=== PATIENT | male | born 1950 | race Caucasian/White ===

== ENCOUNTER 2019-01-09 06:20 | Observation (INO) | payer MEDICARE ==
--- NOTE | 2019-01-08 11:19 | Diagnostic Imaging Report ---
EXAMINATION: CHEST 2 VIEWS INDICATION: Pre-operative COMPARISON: None FINDINGS: LINES/TUBES:None LUNGS:The lungs are well-inflated. No focal consolidation or pulmonary edema. PLEURA:No pleural effusion or pneumothorax. MEDIASTINUM:The cardiomediastinal silhouette appears normal in size and shape. Atherosclerotic calcifications of the thoracic aorta. BONES/SOFT TISSUES:No acute osseous injury. ABDOMEN:No free air under the diaphragm. IMPRESSION: No focal pneumonia or pulmonary edema. Signed by: Brian Palm MD on 01/08/2019 11:16 AM
[2019-01-08 12:32] LABS: BASOPHILS % 0.6 % (0.0-1.0); EOSINOPHILS # (AUTO) 0.1 (0.0-0.4); HEMATOCRIT 47.2 % (38.2-49.6); HEMOGLOBIN 15.9 g/dL (14.0-18.0); LYMPHOCYTES # (AUTO) 1.7 (1.0-3.2); MEAN CORPUSCULAR HEMOGLOBIN 32.6 pg (28-32); MEAN CORPUSCULAR HGB CONC 33.7 g/dL (31-35); MEAN CORPUSCULAR VOLUME 96.7 fL (81-99); MONOCYTES # (AUTO) 0.6 (0.2-0.8); NEUTROPHILS # (AUTO) 3.8 (2.1-6.9); NEUTROPHILS % 61.1 % (38.7-80.0); PLATELET COUNT 226 x10e3/uL (140-360); RED BLOOD COUNT 4.88 x10e6/uL (4.3-5.7); RED CELL DISTRIBUTION WIDTH 11.7 % (11.7-14.4)
[2019-01-08 12:44] LABS: INR 0.92; PROTHROMBIN TIME 12.8 seconds (11.9-14.5)
[2019-01-08 12:45] LABS: PARTIAL THROMBOPLASTIN TIME 27.9 seconds (23.8-35.5)
[2019-01-08 12:48] LABS: ANION GAP 12.5 mmol/L (8-16); BLOOD UREA NITROGEN 15 mg/dL (7-26); BUN/CREATININE RATIO 17 (6-25); CALCIUM 9.2 mg/dL (8.4-10.2); CARBON DIOXIDE 27 mmol/L (22-29); CHLORIDE 102 mmol/L (98-107); CREATININE, SERUM 0.86 mg/dL (0.72-1.25); EST GLOMERULAR FILTRATION RATE > 60 ML/MIN (60-); GLUCOSE 110 mg/dL (74-118); POTASSIUM 3.5 mmol/L (3.5-5.1); SODIUM 138 mmol/L (136-145)
[~2019-01-09] VITALS: Ht 177.8 cm; Wt 70.3 kg
[~2019-01-09 06:20] MED LIST: ASPIR 8181 MG PO; IBUPROFEN400 MG PO; LISINOPRIL10 MG PO
--- OUTSIDE RECORDS SUMMARY | 2019-01-09 06:32 | XMS REPORT | Summary of Care ---
Author Author Mahsa Herman M.A. Unknown Address Unknown Phone Unavailable Care Team Providers Care Millinery Department Manager Name Role Phone AUBREY HUSAIN N.P. Unavailable Unavailable Mahsa Herman M.A. Unavailable Unavailable CAMI DAVIS MS, KRYSTEN ETIENNE Unavailable Unavailable CAMI Walters, KRYSTEN Garcia Unavailable Unavailable Unavailable Functional Status Name Dates Details Functional status health issues are not documented Status: Name Dates Details Cognitive status health issues are not documented Status: Problems Name Dates Details Abdominal pain (789.00, R10.9) Status: Active Skin neoplasm (239.2, D49.2) Status: Active Abdominal pain, LLQ (left lower quadrant) (789.04, R10.32) Status: Active Testicle pain (608.9, N50.819) Status: Active Epididymitis, left (604.90, N45.1) Status: Active Allergic rhinitis (477.9, J30.9) Status: Active Need for vaccination with 13-polyvalent pneumococcal conjugate vaccine (V03.82, Z23) Status: Active Adhesive capsulitis of shoulder (726.0, M75.00) Status: Active Bursitis of right shoulder (726.10, M75.51) Status: Active Impingement syndrome of right shoulder (726.2, M75.41) Status: Active Need for hepatitis C screening test (V73.89, Z11.59) Status: Active Encounter to discuss test results (V65.49, Z71.89) Status: Active Depression screen (V79.0, Z13.89) Status: Active Dizziness (780.4, R42) Status: Active Visual changes (368.9, H53.9) Status: Active Hospital discharge follow-up (V67.59, Z09) Status: Active Prediabetes (790.29, R73.03) Status: Active SLAP tear of shoulder (840.7, S43.439A) Status: Active Type 2 diabetes mellitus (250.00, E11.9) Status: Active Preoperative clearance (V72.84, Z01.818) Status: Active Actinic keratoses (702.0, L57.0) Status: Active Advance care planning (V65.49, Z71.89) Status: Active At low risk for fall (V49.89, Z91.81) Status: Active BPH (benign prostatic hyperplasia) (600.00, N40.0) Status: Active Cerebrovascular accident (CVA) due to other mechanism (434.91, I63.8) Status: Active Decreased vision in both eyes (369.20, H54.3) Status: Active Diabetes mellitus (250.00, E11.9) Status: Active 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, N52.9) Status: Active Encounter for mini-mental status examination Status: Active Encounter for screening for malignant neoplasm of colon (V76.51, Z12.11) Status: Active Essential (primary) hypertension (401.9, I10) Status: Active Limited peripheral vision, unspecified laterality (368.44, H53.459) Status: Active Other hyperlipidemia (272.4, E78.4) Status: Active PFO (patent foramen ovale) (745.5, Q21.1) Status: Active Refused influenza vaccine (V64.06, Z28.21) Status: Active Statin declined Status: Active Encounter for diabetic foot exam (250.00, E11.9) Status: Active Screening for AAA (abdominal aortic aneurysm) (V81.2, Z13.6) Status: Active Abnormal bone xray (793.7, R93.7) Status: Active Screening for osteoporosis (V82.81, Z13.820) Status: Active Macular disorder (362.9, H35.9) Status: Active Medications Name Dates Details Lisinopril 20 MG Oral Tablet TAKE 1 TABLET DAILY FOR BLOOD PRESSURE. Quantity: 90 LISHA N.P., AUBREY * Start : 07-Jun-2016 Active Fish Oil CAPS Takes 2 times a day * Refills: 0 Active Multi Vitamin/Minerals Oral Tablet TAKE 1 TABLET DAILY. * Refills: 0 Active Vitamin C CAPS 2 X a day * Refills: 0 Active Aspirin 81 MG TABS TAKE 1 TABLET DAILY. * Refills: 0 Active Cinnamon TABS 2 tabs daily * Refills: 0 Active Levitra 20 MG Oral Tablet TAKE 1 TABLET DAILY 1 HOUR PRIOR TO INTERCOURSE NEEDED. * Quantity: 30 Refills: 1 HUSAIN N.P., AUBREY * Start : 01-Jun-2015 Active Regine Contour Monitor w/Device Kit USE DIRECTED. * Quantity: 1 Refills: 0 HUSAIN N.P., AUBREY * Start : 17-Dec-2015 Active Regine Contour Test In Vitro Strip USE 1 STRIP DAILY TO CHECK GLUCOSE. * Quantity: 100 Refills: 0 HUSAIN N.P., AUBREY * Start : 17-Dec-2015 Active Regine Microlet Lancets USE DIRECTED. * Quantity: 1 Refills: 0 HUSAIN N.P., AUBREY * Start : 17-Dec-2015 Active Allergies and Adverse Reactions Name Dates Details Nitroglycerin AERS (Allergy) Status: Denied Past Medical History Name Dates Details History of Acute maxillary sinusitis (461.0, J01.00) Status: Resolved History of Cervical spondylosis (721.0, M47.812) Status: Resolved History of Complaint Of Allergic Reaction Seasonal Status: Resolved History of essential hypertension (V12.59, Z86.79) Status: Resolved History of fibromyositis (V13.59, Z87.39) Status: Resolved History of hemorrhoids (V13.89, Z87.19) Status: Resolved History of Other viral agent as cause of disease classified elsewhere (079.99, B97.89) Status: Resolved Procedures Procedure Dates Details EKG (In Office) Date: 07-Jun-2017 [place] Bone Density DXA Dual Energy 86502 Date: 18-Jun-2017 History of Hemorrhoidectomy Completed Immunization Name Dates Details DTaP on: 2010 Pneumo on: 17-Jan-2012 Prevnar 13 Intramuscular Suspension Lot #: [id number] on: 01-Jun-2015 Family History Name Dates Details Family history of cerebrovascular accident (CVA) (V17.1, Z82.3) Status: Active Name Dates Details Family history of Cerebromeningeal Hemorrhage Status: Active Name Dates Details Family history of cerebrovascular accident (CVA) (V17.1, Z82.3) Status: Active Social History Name Dates Details - Status: Name Dates Details Former smoker Former smoker Vital Signs Date Test Result Details No Known Vitals to report Results Date Description Value Details [id number]:00 [Q] FECAL GLOBIN BY IMMUNOCHEM. (MEDICARE) [id number] Comments: FECAL GLOBIN BY IMMUNOCHEM. (MEDICARE) MICRO NUMBER: [id number] TEST STATUS: FINAL SPECIMEN SOURCE: INSURE (TM) FOBT TEST CARD SPECIMEN QUALITY: ADEQUATE RESULT: Not Detected [id number] MA Bone Density DXA Dual Energy 14227 Bone Density DXA Dual Energy MA SEE NOTES Comments: MALE BONE DENSITY ASSESSMENT: 07/18/2017CLINICAL DATA: Z13.820-Screening for osteoporosis. /Z13.820 Encounter ForScreening For OsteoporosisFINDINGS:Bone density evaluation was performed 07/18/2017 on the right femur neck usinga Hologic unit. The BMD average for the exam is 0.804 g/cm2. The T-score is-0.90 and the Z-score is 0.20. This matches the World Health Organization'scriteria for normal bone density and places the patient within normal limits offracture risk. An additional bone density evaluation was performed 07/18/2017 on the leftfemur neck using a Hologic unit. The BMD average for the exam is 0.953 g/cm2.The T- score is 0.20 and the Z-score is 1.30. This matches the World HealthOrganization's criteria for normal bone density and places the patient withinnormal limits of fracture risk. An additional bone density evaluation was performed 07/18/2017 on the righttotal femur area using a Hologic unit. The BMD average for the exam is 0.920 g/cm2. The T-score is -0.70 and the Z-score is - 0.20. This matches the WorldHealth Organization's criteria for normal bone density and places the patientwithin normal limits of fracture risk. An additional bone density evaluation was performed 07/18/2017 on the lefttotal femur area using a Hologic unit. The BMD average for the exam is 1.042 g/cm2. The T-score is 0.10 and the Z-score is 0.60. This matches the WorldHealth Organization's criteria for normal bone density and places the patientwithin normal limits of fracture risk. An additional bone density evaluation was performed 07/18/2017 on the AP L1-M5qsdrad of spine using a Hologic unit. The BMD average for the exam is 0.935 g/cm2. The T-score is -1.40 and the Z-score is -0.60. This matches the WorldHealth Organization's criteria for osteopenia and places the patient at amedium risk for fracture. FRAX 10 year probability of major osteoporotic fracture is 4.5% and hipfracture is 0.5%. IMPRESSION: OSTEOPENIAPatient is at medium risk for fracture. This exam was interpreted at [id number] Ada. Justin Castañeda M.D. cm/penrad:07/19/2017 14:35:32 Operational Communication Chief(s): Elizabeth Vaughn [facility]--Read by: Mateo Sanchezictated Date/time: 07/19/17 14:35Electronically Signed by: Mateo Sanchez MD 07/19/1813:35FINAL REPORT Plan of Care Name Dates Details Planned Observations Planned Goals not documented Instructions Name Dates Details Instructions not documented Encounters Appointment; AUBREY HUSAIN NP Encounter Diagnosis: Problem not documented On: 02-Aug-2015 14:15 Appointment; KATARINA LING M.D. Encounter Diagnosis: Problem not documented On: 26-Aug-2015 10:00 Appointment; KATARINA LING M.D. Encounter Diagnosis: Problem not documented On: 07-Oct-2015 10:00 Appointment; KATARINA LING M.D. Encounter Diagnosis: Problem not documented On: 14-Oct-2015 13:30 Appointment; AUBREY HUSAIN NP Encounter Diagnosis: Problem not documented On: 07-Dec-2015 14:00 Appointment; AUBREY HUSAIN NP Encounter Diagnosis: Problem not documented On: 14-Dec-2015 14:30 Appointment; AUBREY HUSAIN NP Encounter Diagnosis: Problem not documented On: 02-Mar-2016 9:00 Appointment; AUBREY HUSAIN NP Encounter Diagnosis: Problem not documented On: 15-Jun-2016 14:45 Appointment; AUBREY HUSAIN NP Encounter Diagnosis: Problem not documented On: 05-Oct-2016 10:00 Appointment; AUBREY HUSAIN NP Encounter Diagnosis: Problem not documented On: 11-Oct-2016 12:30 Appointment; MEGHANA ST M.D. Encounter Diagnosis: Problem not documented On: 16-Oct-2016 10:00 Appointment; AUBREY HUSAIN NP Encounter Diagnosis: Problem not documented On: 09-May-2017 9:30 Appointment; AUBREY HUSAIN NP Encounter Diagnosis: Problem not documented On: 07-Jun-2017 10:30 Appointment; AUBREY HUSAIN NP Encounter Diagnosis: Problem not documented On: 18-Jun-2017 10:30 Appointment; DEMOND DENISE Encounter Diagnosis: Problem not documented On: 09-Jul-2017 8:00
--- OUTSIDE RECORDS SUMMARY | 2019-01-09 06:32 | XMS REPORT ---
[facility] Address Unknown Phone Unavailable Care Team Providers Care Cutter First Name Role Phone KATHRYN VALDEZ Unavailable Unavailable Problems This patient has no known problems. Allergies, Adverse Reactions, Alerts This patient has no known allergies or adverse reactions. Medications This patient has no known medications. Results Test Description Test Time Test Comments Text Results Atomic Results Result Comments CHEST 2 VIEWS 2019-01-08 11:15:00 [place] [address] Patient Name: MAXIMILIANO GOFF MR #: [id number] : 1950 Age/Sex: 68/M Req #: [id number] [facility] Physician: Ordered by: KATHRYN VALDEZ MD Report #: [id number] Location: OR Room/Bed: Procedure: [id number] DX/CHEST 2 VIEWS Exam Date: 01/08/19 Exam Time: 1030 REPORT STATUS: Signed EXAMINATION: CHEST 2 VIEWS INDICATION: Pre-operative COMPARISON: None FINDINGS: LINES/TUBES:None LUNGS:The lungs are well-inflated. No focal consolidation or pulmonary edema. PLEURA:No pleural effusion or pneumothorax. MEDIASTINUM:The cardiomediastinal silhouette appears normal in size and shape. Atherosclerotic calcifications of the thoracic aorta. BONES/SOFT TISSUES:No acute osseous injury. ABDOMEN:No free air under the diaphragm. IMPRESSION: No focal pneumonia or pulmonary edema. Signed by: Charan Palm MD on 01/08/2019 11:16 AM Dictated By: CHARAN PALM MD [id number] Transcribed By: BEATRIZ on 01/08/19 1116 COPY TO: KATHRYN VALDEZ MD
[2019-01-09] MEDS ORDERED: THROMBIN FOR SOLN 5,000 UNIT VIAL ONE (06:36)
[2019-01-09] MEDS ORDERED: BACITRACIN 50,000 UNIT VIAL ONE (06:36)
[2019-01-09] MEDS ORDERED: BUPIVACAINE 0.5%/EPI 30 ML SDV INJ ONE (06:36)
[2019-01-09] MEDS ORDERED: ACETAMINOPHEN 1000 MG/100 ML 100 ML IV ONE (07:22)
[2019-01-09] MEDS ORDERED: LIDOCAINE HCL (LTA) 4 ML SOLN ONE (07:23)
[2019-01-09] MEDS ORDERED: IBUPROFEN 800MG/ 250ML 250 ML IV ONE (07:23)
[2019-01-09] MEDS ORDERED: CEFAZOLIN SOD 1 GM/NS 50ML 50 ML IV ONE (07:25)
[2019-01-09] MEDS ORDERED: LACTATED RINGER'S 1,000 ML IV SCH (09:53)
[2019-01-09] MEDS ORDERED: MORPHINE SULFATE INJ 4 MG/ML INJ 1ML IM PRN (10:00)
[2019-01-09] MEDS ORDERED: PROMETHAZINE HCL (IM) 25 MG/ML VIAL IM PRN (10:00)
[2019-01-09] MEDS ORDERED: ZOLPIDEM TARTRATE 5 MG TAB PO PRN (10:00)
[2019-01-09] MEDS ORDERED: HYDROMORPHONE 2MG/ML 2 MG/ML ML IV PRN (10:00)
[2019-01-09] MEDS ORDERED: OXYCODONE/ACETAMINOPHEN 5-325 1 EACH TABLET PO PRN (10:00)
[2019-01-09] MEDS ORDERED: MAGNESIUM/ALUMINUM/SIMETHICONE 30 ML UDC PO PRN (10:00)
[2019-01-09] MEDS ORDERED: ACETAMINOPHEN 325 MG TAB PO PRN (10:00)
[2019-01-09] MEDS ORDERED: ONDANSETRON HCL INJ 2MG/ML 2ML 2 MG/ML VIAL IV PRN (10:00)
[2019-01-09] MEDS ORDERED: CARISOPRODOL 350 MG TAB PO PRN (10:00)
[2019-01-09] MEDS ORDERED: HYDROMORPHONE 1MG/1ML INJ ONE (10:24)
--- NOTE | 2019-01-09 10:29 | NUR ---
REPORT RECEIVED FROM DONNIE IN PACU AWAITING FOR PT TO ARRIVE TO FLOOR
[2019-01-09 10:32] VITALS: BP 179/80
--- NOTE | 2019-01-09 10:32 | NUR ---
RECEIVED PT TO FLOOR AA0X3 PT C/O PAIN 4/ TO BACK INCISIONAL SITE DRESSING TO LOWER BACK IS DRY AND INTACT PT HAS AN IV TO THE LEFT HAND 20 WITH LR RUNNING . SITE IS CLEAN AND DRY WILL CONTINUE TO MONITOR PT CLOSELY. SIDE RAILSX2, BED WHEELS LOCKED, CALL LIGHT IS WITHIN EASY REACH, INSTRUCTED TO CALL FOR ASSISTANCE IF NEEDED
--- NOTE | 2019-01-09 13:57 | Operative Report ---
DATE OF PROCEDURE: 01/09/2019 SURGEON: Drew Haynes MD PREOPERATIVE DIAGNOSIS: Left L3-L4 disk herniation with inferior migration of the extruded disk fragment, M51.16. POSTOPERATIVE DIAGNOSIS: Left L3-L4 disk herniation with inferior migration of the extruded disk fragment, M51.16. PROCEDURES: Left L3-L4 laminotomy, medial facetectomy, and microsurgical resection of extruded sequestered disk fragment, 96928. ANESTHESIA: General. INDICATIONS: The patient is a 68-year-old man, who presents with a large left L3-L4 disk herniation with inferior migration of the extruded disk fragment and sequestration within the left L4 lateral recess. He has intractable left L4 radiculopathy. He was taken to the operating room for microsurgical decompression of L4 nerve root. PROCEDURE IN DETAIL: After induction of anesthesia, the patient was placed on the operating table in prone position over Tin frame. Lumbar region was prepped and draped in sterile fashion. A preoperative x-ray was obtained. A small midline incision was created. Lumbar fascia was opened in left of midline and a subperiosteal dissection was carried out to expose the left side of L3 and L4 lamina and the medial aspect of the L3-L4 facet joint. A second x-ray confirmed correct localization. The operating microscope was brought in. A high-speed drill equipped with antonio bur was used to drill the inferior aspect lamina of L3 and the medial rim of the L3-L4 facet joint and superior aspect of lamina of L4. The ligamentum flavum was resected. The dural sac and L4 nerve root were exposed. The epidural veins, lateral to the nerve roots were 1st bipolar coagulated and divided with micro scissors. The disk anulus was exposed and found to be fairly intact. A ball probe was then passed into the ventral epidural space and directed inferiorly and the sequestered disk fragment in the L4 lateral recess was palpated, this was then delivered out with the edge of the ball probe and grasped with micro pituitary rongeur and removed as a fragment as a sizable fragment of disk. This maneuver was repeated several additional times and two smaller fragments of disk were retrieved and removed from the L4 lateral recess. The nerve root became fully decompressed. Meticulous hemostasis was secured. A small piece of Gelfoam was left in the lateral recess to maintain hemostasis. The annulus of the disk again was found to be fairly intact and was not incised during this procedure. The wound was copiously irrigated with bacitracin solution and closed with 0 and 2-0 Vicryl sutures. The skin was closed with 3-0 Monocryl sutures in subcuticular fashion. Steri-Strips and dressing were applied. The patient was awakened, extubated, and taken to postanesthesia care unit in stable condition. No intraoperative complications were encountered. Estimated blood loss was [address]we Haynes MD PP/ELISABET /[id number]
[2019-01-09 15:58] VITALS: BP 127/60
[2019-01-09] MEDS: CEFAZOLIN SOD 1 GM/NS 50ML 50 ML IV SCH (16:18)
[2019-01-09] MEDS ORDERED: FENTANYL CITRATE/PF 100MCG/2 ML INJ ONE (19:33)
[2019-01-09] MEDS ORDERED: MIDAZOLAM HCL 2 MG/2 ML VIAL ONE (19:33)
[2019-01-09] MEDS ORDERED: ONDANSETRON HCL INJ 2MG/ML 2ML 2 MG/ML VIAL ONE (19:36)
[2019-01-09] MEDS ORDERED: LIDOCAINE HCL 2% JELLY 5 ML TUBE ONE (19:36)
[2019-01-09] MEDS ORDERED: LIDOCAINE HCL 2% LOCAL INJ 5 ML SDV VIAL INJ ONE (19:36)
[2019-01-09] MEDS ORDERED: ROCURONIUM BROMIDE 10 MG/ML 5ML VIAL ONE (19:36)
[2019-01-09] MEDS ORDERED: SEVOFLURANE INHAL SOLN 250 ML PEN BTL ONE (19:36)
[2019-01-09] MEDS ORDERED: GLYCOPYRROLATE INJ 1MG/ 5 ML SYR ONE (19:36)
[2019-01-09] MEDS ORDERED: PROPOFOL IV EMULSION 10 MG/ML 20 ML VIAL ONE (19:36)
[2019-01-09] MEDS ORDERED: DEXAMETHASONE SOD PHOS INJ 4 MG/ML VIAL ONE (19:36)
[2019-01-09] MEDS ORDERED: NEOSTIGMINE 5 MG/5ML SYR ONE (19:36)
[2019-01-09 20:00] VITALS: BP 118/64
[2019-01-09] MEDS ORDERED: LISINOPRIL 20 MG TAB PO SCH (21:00)
[2019-01-09 21:48] VITALS: BP 118/64
[2019-01-10] VITALS: BP 134/60
[2019-01-10] MEDS: CEFAZOLIN SOD 1 GM/NS 50ML 50 ML IV SCH ×2 (00:51→09:00)
[2019-01-10 04:00] VITALS: BP 140/66
--- NOTE | 2019-01-10 07:07 | NUR ---
bedside report given to oncoming nurse, patient in stable condition.
[2019-01-10 07:30] VITALS: BP 123/64
[2019-01-10] MEDS ORDERED: NORCO 7.5-3251 EACH PO (07:42)
[2019-01-10 09:41] VITALS: BP 123/64
--- NOTE | 2019-01-10 11:07 | NUR ---
DISCHARGE INSTRUCTIONS REVIEWED WITH PT AND FAMILY, VERBALIZED UNDERSTANDING, LOWER BACK DRESSING REMOVED, STERI STRIPS INTACT, OLD DRAINAGE NOTED, TISSUE SOFT, WHEELED OFF UNIT VIA WC FOR DISCHARGE, NO CHANGE IN CONDITION
[2019-01-10] MEDS ORDERED: ONDANSETRON HCL 4 MG ORAL DISINTEGRATING TAB PO PRN (12:00)
== END 2019-01-10 11:13 | disposition home or self-care (01) ==
LOC: OR 06:20 → PACU V 09:57 → MED/SURG 10:32
PROVIDERS: ADMIT Neurological Surgery; ATTEND Neurological Surgery
DX: M51.16 Intervertebral disc disorders with radiculopathy, lumbar region (principal); Z01.810 Encounter for preprocedural cardiovascular examination; Z01.812 Encounter for preprocedural laboratory examination; Z01.811 Encounter for preprocedural respiratory examination; Z86.73 Personal history of transient ischemic attack (TIA), and cerebral infarction without residual deficits; K44.9 Diaphragmatic hernia without obstruction or gangrene; Z79.82 Long term (current) use of aspirin; I10 Essential (primary) hypertension; E78.5 Hyperlipidemia, unspecified; Z87.891 Personal history of nicotine dependence
CPT/HCPCS: 36415; 63047; 71046; 72020; 80048; 85025; 85610; 85730; 86850; 86900; 88304; 93005; G0378 ×2; J0131; J0690 ×2; J1100; J1170; J2001 ×2; J2250; J2405; J2704; J3010; J3490; J7121